=== PATIENT | male | born 1980 | race Caucasian/White ===

== ENCOUNTER 2023-02-26 04:54 | Emergency (ER) | payer MEDICARE, MEDICAID, SELFPAY ==
[2023-02-26 04:56] VITALS: PULSE 94; RESP 22; TEMP 36.3; O2SAT 93; BMI 27.3
[2023-02-26 05:17] VITALS: PULSE 80; RESP 18; O2SAT 100
--- NOTE | 2023-02-26 05:29 | PC.NURSE ---
This RN spoke with Darvin DIAS, environmental issues instructor provider/prescriber for methadone dosing, at [facility] in [place].Per Darvin pt is getting 10mg tablets, 3 tablet TID(30mg TID). updated and will put in orders.
--- NOTE | 2023-02-26 05:33 | ED.GENADULT ---
HPI - General Adult General Chief complaint: General Medical Stated complaint: Med Refill Time Seen by Provider: 02/26/23 05:29 Source: patient Mode of arrival: ambulatory Limitations: no limitations History of Present Illness HPI narrative: Patient comes to the emergency room complaining of methadone withdrawal. Patient states that he has not had methadone in 2 days and is withdrawing, patient has diffuse body aches, anxiety, feels very uncomfortable. Related Data Previous Rx's Medication Instructions Recorded methadone 10 mg tablet 30 mg PO TID #18 tabs 02/26/23 Allergies Allergy/AdvReac Type Severity Reaction Status Date / Time No Known Allergies Allergy Verified 02/26/23 05:31 Review of Systems Review of Systems: Constitutional : No Weight loss, No Fever, No Chills, No Night Sweats, complaining of generalized malaise, body aches ENT/Mouth : No Hearing loss, No Ear Pain, No Nasal Congestion, No Sinus Pain, No Hoarseness, No sore throat, No Rhinorrhea, No Swallowing Difficulty Eyes: No Eye Pain, No Swelling, No Redness, No Foreign Body, No Discharge, No Vision Changes Cardiovascular : No Chest Pain, No SOB, No Dyspnea on Exertion, No Orthopnea, No Edema, No Palpitations Respiratory : No Cough, No Sputum, No Wheezing, No Smoke Exposure, No Dyspnea Gastrointestinal : Complain of feeling nauseous No Vomiting, No Diarrhea, No Constipation, No abdominal Pain, No Hematochezia, No Melena Genitourinary : no irregular bleeding, No Dysuria, No Urinary Frequency, No Hematuria, No Urinary Incontinence, No Urgency, No Flank Pain, No Urinary Flow Changes, No Hesitancy Musculoskeletal : No joint pain, No Myalgias, No Joint Swelling Skin : No Skin Lesions, No rash Neuro : No Weakness, No Numbness, No Paresthesias, No Loss of Consciousness, No Dizziness, No Headache Psych : No Anxiety/Panic, No Depression, No SI/HI/AH/VH, No Social Issues, Heme/Lymph: No Bruising, No Bleeding,No Lymphadenopathy Endocrine : No Polyuria, No Polydipsia, No Temperature Intolerance [facility] Past Medical History Medical History (Updated 02/26/23 @ 05:38 by Aislinn Avendano MD) Methadone dependence Social History Social History Alcohol intake: former Use of substances other than those prescribed or required for medical reasons: No Advance Directives: No Advance Directives Information Provided: Yes Physical Exam ED Vital Signs: Vital Signs - 24 hr 02/26/23 04:56 02/26/23 05:17 Temperature 97.4 F Pulse Rate 94 80 Respiratory Rate 22 H 18 Pulse Oximetry 93 100 Oxygen Delivery Method Room Air BMI result Body Mass Index 27.3 Const Other: Appearance: Alert. Oriented X3. Patient seems very uncomfortable, pacing Eyes: Pupils equal, round and reactive to light. ENT: Pharynx normal. Neck: Normal inspection. Neck supple. No lymph nodes noted. No crepitus CVS: Normal heart rate and rhythm. Pulses normal. Normal S1 and S2 Respiratory: No respiratory distress. Breath sounds normal. No Wheezing. No rales Abdomen: Soft and nontender. No rigidity. No distention. Skin: Skin warm and diaphoretic. Normal skin color. Normal skin turgor. Extremities: No lower extremity edema. No Lacerations. No Rash Neuro: Oriented X 3. No motor deficit. No sensory deficit. Moving all extremities. No slurred speech. CN 2 through 12 grossly intact Psych: calm, cooperative, anxious Medical Decision Making Medical Decision Making MDM Narrative: -patient's nurse was able to get in touch with the patient's methadone Clinic, physician records management assistant Perico Maldonado explains that they are having an IT problem at the clinic and therefore the patient's prescription could not be sent to his pharmacy. It was confirmed that patient is compliant, takes methadone 30 mg , 3 times a day. Unfortunately, over the weekend , IT at the methadone clinic will not be able to fix the problem and sent the patient's prescriptions. -I gave to the patient 30 mg of methadone here in the ED, I will prescribe his prescribed dose until Tuesday -patient very thankful and agreeable with plan Differential Diagnosis Differential Diagnoses: The differential diagnosis associated with the presentation includes (Methadone withdrawal, substance abuse) Discharge Plan Discharge Clinical Impression: Methadone withdrawal Patient Disposition: Home, Self-Care Instructions: Methadone (By mouth) Additional Instructions: Please follow-up with your primary care physician and your methadone clinic on Tuesday. If you have any worsening or new symptoms, please return to the emergency room or call 911 Prescriptions: New methadone 10 mg tablet 30 mg PO TID Qty: 18 0RF Rx Instructions: Partial Fill upon patient request.
[2023-02-26] MEDS: LORazepam 1 MG TABLET PO (05:38)
[2023-02-26] MEDS: Ondansetron ODT 4 MG TAB.RAPDIS TRANSLINGU (05:38)
--- NOTE | 2023-02-26 06:04 | PC.NURSE ---
Addendum entered by Lynda Bass RN 02/26/23 06:24: This RN waiting for pharmacy to bring medication to the ED. Original Note: Mdication unavailable in hospital. Called overnight pharmacy to discuss. They informed this RN that day pharmacy was coming in and will have to load in the pixus.No answer at this time.
[2023-02-26] MEDS: methADONE HCl 10 MG TABLET 30 MG PO (06:49)
== END 2023-02-26 07:15 | disposition home or self-care (01) ==
PROVIDERS: Emergency Provider Emergency Medicine
DX: F11.23 Opioid dependence with withdrawal (principal)
CPT/HCPCS: 99283; 99284